=== PATIENT | male | born 1980 | race Caucasian/White ===

== ENCOUNTER 2018-01-23 09:03 | Emergency (ER) | payer SELFPAY ==
[2018-01-23] MEDS: MECLIZINE 12.5 MG TAB PO (10:24)
[2018-01-23] MEDS: ONDANSETRON (ODT) 4 MG TAB ODT (10:25)
== END 2018-01-23 12:00 | disposition home or self-care (01) ==
LOC: FTE 09:03
DX: R42 Dizziness and giddiness (principal); R11.0 Nausea
CPT/HCPCS: 70450; 99284-25